=== PATIENT | female | born 1930 | race Two or more races ===

== ENCOUNTER 2021-04-16 01:03 | Emergency (ER) | payer OTHER ==
[~2021-04-16] VITALS: Ht 147.3 cm; Wt 47.6 kg
[2021-04-16] MEDS ORDERED: SYNTHROID75 MCG (01:15)
[2021-04-16] MEDS ORDERED: TOPROL XL50 M1 (01:16)
[2021-04-16] MEDS ORDERED: INTESTINEX680 M1 PO (06:42)
[2021-04-16] MEDS ORDERED: CIPRO500 MG PO (06:42)
[2021-04-16] MEDS ORDERED: FLAGYL500MG PO (06:42)
== END 2021-04-16 06:53 | disposition home or self-care (01) ==
LOC: ER 01:03
DX: K57.31 Diverticulosis of large intestine without perforation or abscess with bleeding (principal); R19.7 Diarrhea, unspecified; D72.828 Other elevated white blood cell count; N39.0 Urinary tract infection, site not specified; R31.29 Other microscopic hematuria; R00.0 Tachycardia, unspecified